=== PATIENT | female | born 1955 | race African-American/Black ===

== ENCOUNTER 2017-02-11 05:43 | Emergency (ER) | payer OTHER ==
[~2017-02-11] VITALS: Ht 154.9 cm; Wt 95.0 kg
[2017-02-11 05:49] VITALS: Ht 154.9 cm; Wt 95.0 kg
[2017-02-11] MEDS ORDERED: KETOROLAC 60 MG INJ IM STA (06:02)
[2017-02-11] MEDS ORDERED: HYDROCODONE/APAP (5/325) TAB PO ONE (06:30)
[2017-02-11 07:12] LABS: ADD SCAN DIFF NO
[2017-02-11 07:16] LABS: BASOPHIL # 0.1 10^3/ul (0.0-0.1); BASOPHILS % 0.5 % (0.0-2.0); EOSINOPHILS # 0.2 10^3/ul (0.0-0.5); EOSINOPHILS % 2.3 % (0.0-7.0); HEMATOCRIT 39.4 % (37.0-47.0); HEMOGLOBIN 12.7 g/dl (12.0-16.0); LYMPHOCYTES # 1.6 10^3/ul (0.8-2.9); LYMPHOCYTES % 17.7 % (15.0-51.0); MEAN CORPUSCULAR HEMOGLOBIN 27.4 pg (29.0-33.0); MEAN CORPUSCULAR HGB CONC 32.2 g/dl (32.0-37.0); MEAN CORPUSCULAR VOLUME 85.1 fl (82.0-101.0); MEAN PLATELET VOLUME 12.3 fl (7.4-10.4); MONOCYTE # 0.7 10^3/ul (0.3-0.9); MONOCYTES % 7.2 % (0.0-11.0); NEUTROPHIL # 6.5 10^3/ul (1.6-7.5); NEUTROPHILS % 71.6 % (39.0-77.0); PLATELET COUNT 168 10^3/UL (140-415); RED BLOOD COUNT 4.63 10^6/ul (4.20-5.40); WHITE BLOOD COUNT 9.1 10^3/ul (4.8-10.8)
--- NOTE | 2017-02-11 07:28 | ERA ---
ER Documentation Chief Complaint Date/Time DATE: 02/11/17 TIME: 07:23 Chief Complaint right knee pain since yesterday, no injury, worse today, crying outloud. HPI 61-year-old female with a history of hypertension and valve replacement presenting with right knee pain. She states that the pain started yesterday suddenly without any preceding trauma. She was standing around last night cooking when she started feeling more and more pain. Throughout the night she had severe pain. She did not take anything for the pain. She states that she has been unable to walk secondary to the pain. The pain is currently a 10 out of 10, aching, in the lower medial knee, nonradiating, worse with standing and walking, nothing seems to make it better. She denies any associated fever, chills, tingling, numbness. She has never had pain in her knee before. ROS All systems reviewed and are negative except as per history of present illness. Medications Home Meds Active Scripts Hydrocodone/Acetaminophen ([place] 5-325 Tablet) 1 Each Tablet, 1 TAB PO Q6H Y for SEVERE PAIN LEVEL 7-10, #7 TAB Prov:HAZEL LOPEZ MD 02/11/17 Ibuprofen* (Motrin*) 600 Mg Tab, 600 MG PO Q6H Y for PAIN AND OR ELEVATED TEMP, #30 TAB Prov:HAZEL LOPEZ MD 02/11/17 Allergies Allergies: Coded Allergies: Penicillins (Verified Allergy, Unknown, 02/11/17) PMhx/Soc History of Surgery: Yes (heart valve replacement, left knee surgery) Anesthesia Reaction: No Hx Respiratory Disorders: Yes (asthma) Hx Cardiac Disorders: Yes (htn) Hx Alcohol Use: No Hx Substance Use: No Hx Tobacco Use: No Smoking Status: Unknown if ever smoked FmHx Family History: No diabetes Physical Exam Vitals Vital Signs Date Time Temp Pulse Resp B/P Pulse Ox O2 Delivery O2 Flow Rate FiO2 02/11/17 05:49 97.1 100 25 173/91 99 Physical Exam Const: Crying, in distress secondary to pain, nontoxic Head: Atraumatic Eyes: Normal Conjunctiva ENT: Normal External Ears, Nose and Mouth. Neck: Full range of motion. No meningismus. Resp: Clear to auscultation bilaterally Cardio: Regular rate and rhythm, no murmurs Abd: Soft, non tender, non distended. Normal bowel sounds Skin: No petechiae or rashes. No discoloration in the extremities. Back: No midline or flank tenderness Ext: No cyanosis, or edema. 2+ pulses in all 4 extremities RLE: No obvious deformity. No ecchymosis. No edema. No swelling or erythema over the joint. No laceration. Compartments soft. Tenderness to palpation of the medial/inferior aspect of the knee joint. Sensations intact in all distributions. 2+ DP, PT pulses.CR < 2 sec. Full AROM at hip/ankle. Refusing to range knee secondary to pain. Strength grossly intact with poor effort Neur: Awake and alert Psych: Normal Mood and Affect Result Diagram: 02/11/1770402/11/17704 Results 24 hrs Laboratory Tests Test 02/11/17 07:05 White Blood Count 9.110^3/ul Red Blood Count 4.6310^6/ul Hemoglobin 12.7g/dl Hematocrit 39.4% Mean Corpuscular Volume 85.1fl Mean Corpuscular Hemoglobin 27.4pg Mean Corpuscular Hemoglobin Concent 32.2g/dl Red Cell Distribution Width 16.0% Platelet Count 16191^3/UL Mean Platelet Volume 12.3fl Neutrophils % 71.6% Lymphocytes % 17.7% Monocytes % 7.2% Eosinophils % 2.3% Basophils % 0.5% Nucleated Red Blood Cells % 0.0/100WBC Neutrophils # 6.510^3/ul Lymphocytes # 1.610^3/ul Monocytes # 0.710^3/ul Eosinophils # 0.210^3/ul Basophils # 0.110^3/ul Nucleated Red Blood Cells # 0.010^3/ul Erythrocyte Sedimentation Rate 8mm/Hr Prothrombin Time 12.2Sec Prothrombin Time Ratio 1.0 INR International Normalized Ratio 0.91 Activated Partial Thromboplast Time 28.0Sec Sodium Level 144mmol/L Potassium Level 3.6mmol/L Chloride Level 109mmol/L Carbon Dioxide Level 26mmol/L Anion Gap 13 Blood Urea Nitrogen 17mg/dl Creatinine 0.82mg/dl Glucose Level 122mg/dl Calcium Level 9.3mg/dl Total Bilirubin 0.1mg/dl Direct Bilirubin 0.00mg/dl Indirect Bilirubin 0.1mg/dl Aspartate Amino Transf (AST/SGOT) 24IU/L Alanine Aminotransferase (ALT/SGPT) 27IU/L Alkaline Phosphatase 67IU/L C-Reactive Protein < 0.5mg/dl Total Protein 7.0g/dl Albumin 4.0g/dl Globulin 3.00g/dl Albumin/Globulin Ratio 1.33 Current Medications Medications (Trade) Dose Ordered Sig/Collin Route PRN Reason Start Time Stop Time Status Last Admin Dose Admin Ketorolac Tromethamine (Toradol) 60 mg ONCE STAT IM 02/11/17 06:02 02/11/17 06:04 DC 02/11/17 06:09 Acetaminophen/ Hydrocodone Bitart ([place] (5/325)) 1 tab ONCE ONCE PO 02/11/17 06:30 02/11/17 06:31 DC 02/11/17 06:09 Procedures/MDM X-ray Knee 3V Interpreted by me: Bones: No fracture, bony lytic lesion of the proximal tibia Joints: No dislocation Foreign body: None Labs: CBC, CMP, CRP ESR within normal limits Patient is presenting with acute nontraumatic right knee pain. She is neurovascularly intact. Her vitals were notable for hypertension but there is no evidence of hypertensive emergency. There is no evidence of ischemic limb or DVT. X-ray shows a chondroma of the proximal tibia per radiology, likely benign. Labs are all within normal limits. I spoke with Dr. Lagunas, the Orthopedist agricultural education instructor, and he recommended outpatient follow up in his clinic for further workup and management. He does not think she needs admission. She was discharged with crutches, robin wrap and a prescription for ibuprofen and [place]. She was encouraged to return for any worsening symptoms. She was also encouraged to follow-up with her primary care physician regarding her uncontrolled hypertension in 1-2 days. Departure Diagnosis: Primary Impression: Right medial knee pain Additional Impression: Chondroma Condition: HAZEL Mayers MD February 11, 2017 07:27
[2017-02-11 07:31] LABS: CHLORIDE 109 mmol/L (97-110); POTASSIUM 3.6 mmol/L (3.5-5.1); SODIUM 144 mmol/L (135-144)
[2017-02-11 07:33] LABS: BILIRUBIN,INDIRECT 0.1 mg/dl (0-1.1); BILIRUBIN,TOTAL 0.1 mg/dl (0.2-1.3); CREATININE 0.82 mg/dl (0.44-1.00)
[2017-02-11 07:34] LABS: ALANINE AMINOTRANSFERASE 27 IU/L (13-69); ALBUMIN/GLOBULIN RATIO 1.33; ALKALINE PHOSPHATASE 67 IU/L (42-121); ANION GAP 13 (8-16); ASPARTATE AMINO TRANSFERASE 24 IU/L (15-46); BLOOD UREA NITROGEN 17 mg/dl (7-20); CARBON DIOXIDE 26 mmol/L (21-31); GLUCOSE 122 mg/dl (70-220)
[2017-02-11 07:35] LABS: CALCIUM 9.3 mg/dl (8.4-10.2)
[2017-02-11 07:39] LABS: INR 0.91; PROTIME 12.2 Sec (12.2-14.2)
[2017-02-11 07:52] LABS: C-REACTIVE PROTEIN < 0.5 mg/dl (0.0-0.9)
--- NOTE | 2017-02-11 08:18 | RADRPT ---
PROCEDURE: XR Knee. CLINICAL INDICATION: Knee pain TECHNIQUE: Three views of the right knee are available for review. COMPARISON: None available FINDINGS: There is a large mixed lucent and sclerotic lesion in the proximal tibia with a well-defined borders . The femorotibial and patellofemoral compartments are otherwise maintained. There is no acute oss eous abnormality or evidence of fracture. The osseous structures appear demineralized. Trace joint effusion. IMPRESSION: 1. No acute osseous abnormality or evidence of fracture. 2. Trace joint effusion 3. Up to 6 cm chondroid lesion at the proximal tibia, with benign radiographic features, although f ollow-up imaging with radiographs of MRI may be helpful to document stability in 2-4 months or soone r if there is pain localized to this region. RPTAT: PP .Angelo Gracia MD, MD Date Time Electronically viewed and signed by .Angelo Gracia MD, on 02/11/2017 08:17 .d/
[2017-02-11] MEDS ORDERED: HYDR-906 PO (09:06)
[2017-02-11] MEDS ORDERED: IBUP-1542 PO (09:06)
== END 2017-02-11 09:48 | disposition home or self-care (01) ==
LOC: E/R 05:43
DX: M25.561 Pain in right knee (principal); D16.9 Benign neoplasm of bone and articular cartilage, unspecified; J45.909 Unspecified asthma, uncomplicated; I10 Essential (primary) hypertension
CPT/HCPCS: 36415; 73562; 80053; 85025; 85610; 85651; 85730; 86140; 96372; J1885; Z7502; Z7610